=== PATIENT | male | born 1955 | race Caucasian/White ===

== ENCOUNTER 2023-08-21 14:16 | Emergency (ER) | payer MEDICARE, OTHER ==
[2023-08-21 14:36] VITALS: BP 175/97; PULSE 67; RESP 18; TEMP 97.9; BMI 29.2
[2023-08-21] MEDS: ACETAMINOPHEN 500 MG TABLET (FP) PO ONE (14:54)
[2023-08-21] MEDS ORDERED: ACETAMINOPHEN 500 MG TABLET (FP) ONE (14:55)
== END 2023-08-21 15:12 | disposition home or self-care (01) ==
LOC: FER 14:16
DX: S09.90XA Unspecified injury of head, initial encounter (principal); W22.8XXA Striking against or struck by other objects, initial encounter
CPT/HCPCS: 99283-25